=== PATIENT | female | born 1995 | race Caucasian/White ===

== ENCOUNTER → 2023-05-11 06:58 | Outpatient (REF) | payer BC, SELFPAY | LOC: RAD 06:58 | PROVIDERS: ATTENDING PHYSICIAN Family Medicine | DX: E04.1 Nontoxic single thyroid nodule (principal) | CPT/HCPCS: 76536 ==

== ENCOUNTER → 2024-05-13 07:22 | Outpatient (REF) | payer BC, SELFPAY | LOC: RAD 07:22 | PROVIDERS: ATTENDING PHYSICIAN Otolaryngology; FAMILY PHYSICIAN Family Medicine | DX: E04.1 Nontoxic single thyroid nodule (principal) | CPT/HCPCS: 76536 ==